=== PATIENT | male | born 1965 | race Caucasian/White ===

== ENCOUNTER 2025-01-03 19:32 | Emergency (ER) | payer OTHER ==
[~2025-01-03] VITALS: Ht 177.8 cm; Wt 123.1 kg
[2025-01-03 19:34] VITALS: TEMP 97.7
--- NOTE | 2025-01-03 19:56 | RADIOLOGY REPORT ---
EXAM: DI CHEST,SINGLE VIEW HISTORY: CP TECHNIQUE: 1 view of the chest COMPARISON: None FINDINGS/IMPRESSION: LUNGS: No pleural effusion, consolidation, or pneumothorax. MEDIASTINUM: Unremarkable. BONES: No acute osseous abnormality. OTHER: None.
[2025-01-03 20:15] LABS: CREATININE 1.32 MG/DL (0.60-1.10); PRO BRAIN NATRIURETIC PEPTIDE 49 PG/ML (0-125); TOTAL CARBON DIOXIDE 29.2 MMOL/L (24-32); eCRCL 61 ML/MIN; eGFR 55 ML/MIN
[2025-01-03 20:25] LABS: MEAN PLATELET VOLUME 8.3 FL (7.4-10.4); RED CELL DISTRIBUTION WIDTH 13.0 % (11.5-14.5)
[2025-01-03 20:30] VITALS: BP 175/108; PULSE 87; RESP 18; O2SAT 95
--- NOTE | 2025-01-03 20:34 | Physician Documentation ---
History of Present Illness ~ Chief Complaint: Chest Pain Stated Complaint: CHEST PAIN Time Seen by MD: 20:26 HPI Patient presents to the emergency room with intermittent chest tightness. He states that has symptoms seemed to be exacerbated when he gets poor sleep. He does not smoke and denies any history of high blood pressure cholesterol or diabetes. He denies any family history of heart disease but does state that has mother has had multiple strokes. No current symptoms. What prompted him to come in today is that has he is also experiencing a headache and felt his heart racing and took his heart rate to be 120 eight he felt he should get evaluated. He does have a primary care provider. Reports a negative stress test a proximally two years ago. Medication Reconciliation Allergies: Coded Allergies: No Known Allergies (Unverified , 01/03/25) Review of Systems ROS All review of systems negative except as per HPI Physical Exam Vital Signs: Temperature: 97.7, Source: Temporal, Heart Rate: 101, Respiratory Rate: 16, BP: 136/92, Pulse Oximetry: 97, Weight: 123.100 Oxygen Flow Rate: 0 Physical Exam General: Patient is awake, alert, oriented x4 in no acute distress and well appearing.~ Head: Normocephalic and atraumatic. Eyes: Conjunctival normal. EOMI. PERRL. ENT: Mucous membranes moist. Neck: Supple, trachea is midline. Chest: Clear to auscultation bilaterally without rales, rhonchi, or wheezes. There is no accessory muscle use or retractions. Cardiac: RRR without murmurs, gallops, or rubs. Abd: Soft, nondistended, nontender, with normoactive bowel sounds. No guarding, rebound, or rigidity. Extremities: Normal strength. Normal range of motion. No deformities or edema. No calf tenderness to palpation Progress Results/Orders Results/Orders Orders - HANS VALDEZ MD Chest,Single View (01/03/25 19:48) Monitor (01/03/25 19:33) Saline Lock (01/03/25 19:33) Oxygen (01/03/25 19:33) Electrocardiogram (01/03/25 19:33) Hs Troponin I W Calculations (01/03/25 21:33) Hs Troponin I W Calculations (01/03/25 22:33) Completed Orders - HANS VALDEZ MD Chest,Single View (01/03/25 19:48) Cbc/Diff (01/03/25 19:33) BMP (01/03/25 19:33) PBNP (01/03/25 19:33) Hs Troponin I W Calculations (01/03/25 19:33) Vital Signs 01/03/25 01/03/25 19:34 20:30 Temp 97.7 Pulse 101 87 Resp 16 18 B/P (MAP) 136/92 175/108 (130) Pulse Ox 97 95 O2 Flow Rate 0 0 Laboratory Tests Test 01/03/25 19:47 White Blood Count 8.4 Red Blood Count 5.74 Hemoglobin 17.6 Hematocrit 50.7 Mean Corpuscular Volume 88.3 Mean Corpuscular Hemoglobin 30.7 Mean Corpuscular Hemoglobin Concent 34.8 Red Cell Distribution Width 13.0 Platelet Count 240 Mean Platelet Volume 8.3 Neutrophils (%) (Auto) 52.0 Lymphocytes (%) (Auto) 33.7 Monocytes (%) (Auto) 11.8 Eosinophils (%) (Auto) 1.7 Basophils (%) (Auto) 0.8 Neutrophils # (Auto) 4.4 Lymphocytes # (Auto) 2.8 Monocytes # (Auto) 1.0 H Eosinophils # (Auto) 0.1 Basophils # (Auto) 0.1 CBC Comment Sodium Level 140 Potassium Level 4.0 Chloride Level 105 Carbon Dioxide Level 29.2 Anion Gap 6 L Blood Urea Nitrogen 17 Creatinine 1.32 H Estimated GFR/1.73 m2 55 BUN/Creatinine Ratio 12.9 Glucose Level 104 Calcium Level 8.3 L Troponin I High Sensitivity 23 Pro-B-Type Natriuretic Peptide 49 Albumin 4.1 Chemistry Comments EKG/XRAY/CT/US/VASC/MRI EKG : Additional Comment EKG interpreted by myself shows time of 1937, rate 104, sinus tachycardia, left axis deviation, no ST changes Chest X-Ray : Additional Comments Exam: CHEST,SINGLE VIEW EXAM: DI CHEST,SINGLE VIEW HISTORY: CP TECHNIQUE: 1 view of the chest COMPARISON: None FINDINGS/IMPRESSION: LUNGS: No pleural effusion, consolidation, or pneumothorax. MEDIASTINUM: Unremarkable. BONES: No acute osseous abnormality. OTHER: None. Medical Decision Making Additional information obtaine: old records Findings Patient presents to the emergency room for evaluation of chest pain. He describes the pain as a tightness that occurs occasionally. Seems to correlate with lack of sleep. Time of onset today that has noon with associated heart rate being in the 120s. That has strongly suspect he may be going out of atrial fibrillation however that has no evidence of any heart strain or atrial fibrillation in the emergency room here today. He denies any actual pain. Lack of risk factors give patient a heart score of two no current symptoms I do not feel he requires investigation to pulmonary embolism or aortic pathology. He does have a primary care doctor. ER precautions discussed. Heart Score: 2 Differential Dx:Considerations: Include: angina, aortic dissection, chest wall pain, cholelithiasis, CHF, costochondritis, esophageal reflux/spasm, gastritis, herpes zoster, myocardial infarction, pericarditis, pleuritis, pancreatitis, pneumonia, pneumothorax, pulmonary embolus, other Departure Disposition: HOME / SELF CARE / HOMELESS Impression: Primary Impression: Palpitations Condition: Stable Discharge Instructions: Nonspecific Chest Pain, Adult Additional Instructions: Follow up with your doctor for investigation into possible arrhythmia. Consider Holter monitor. Consider possible stress test Referrals: NO PRIMARY CARE PROVIDER (PCP) Signature Scribe Signature: No scribe Attestation: The note accurately reflects work and decisions made by me.Hans Valdez MD 01/03/25 20:46 HANS VALDEZ MD Jan 03, 2025 20:34
--- NOTE | 2025-01-04 04:57 | ELECTROCARDIOGRAPH REPORT ---
[facility] Test Date: 2025-01-03 Test Time: 19:37:55 Pat Name: ANGEL BUSH Department: EMERGENCY ROOM Room: Gender: M Wick Tender: KOSTA : 1965 Requested By: HEAVEN ROSALES Order Number: [id number] Reading MD: Dr. Rich Green Measurements Intervals [place] Rate: 104 P: 47 ID: 140 QRS: -47 QRSD: 95 T: 65 QT: 326 QTc: 429 Interpretive Statements Sinus tachycardia Left anterior fascicular block Abnormal R-wave progression, late transition Electronically Signed On 01-05-2025 18:47:[address] Rich Green Please click the below link to view image of tracing.
== END 2025-01-03 21:07 | disposition home or self-care (01) ==
LOC: ER 19:33
DX: R00.2 Palpitations (principal)
CPT/HCPCS: 36415; 71045; 80048; 83880; 84484; 85025; 93005; 99285